=== PATIENT | male | born 2000 | race African-American/Black ===

== ENCOUNTER 2020-11-01 14:17 | Outpatient (REF) | payer OTHER, SELFPAY | END 2020-11-01 14:18 | disposition home or self-care (01) | LOC: HO.LAB 14:17 | PROVIDERS: Visit Provider Internal Medicine | DX: Z20.828 Contact with and (suspected) exposure to other viral communicable diseases (principal) | CPT/HCPCS: C9803; U0003 ==

== ENCOUNTER 2021-02-13 10:45 | Outpatient (REF) | payer OTHER, SELFPAY | END 2021-02-13 10:46 | disposition home or self-care (01) | LOC: HO.LAB 10:45 | PROVIDERS: Visit Provider Internal Medicine | DX: Z20.822 Contact with and (suspected) exposure to COVID-19 (principal) | CPT/HCPCS: 36415; C9803; U0003; U0005 ==

== ENCOUNTER 2021-09-04 14:45 | Outpatient (REF) | payer MEDICAID, SELFPAY | END 2021-09-04 14:46 | disposition home or self-care (01) | LOC: HO.LAB 14:45 | PROVIDERS: Visit Provider Internal Medicine | DX: Z20.822 Contact with and (suspected) exposure to COVID-19 (principal) | CPT/HCPCS: C9803; U0003; U0005 ==

== ENCOUNTER 2021-12-05 11:26 | Outpatient (REF) | payer MEDICAID, SELFPAY ==
[2021-12-05 12:21] LABS: COVID-19 Test Negative (Negative)
== END 2021-12-05 11:27 | disposition home or self-care (01) ==
LOC: HO.LAB 11:26
PROVIDERS: Visit Provider Internal Medicine
DX: Z20.822 Contact with and (suspected) exposure to COVID-19 (principal)
CPT/HCPCS: 87635; C9803